=== PATIENT | female | born 1970 | race Caucasian/White ===

== ENCOUNTER 2018-08-01 13:15 | Outpatient (CLI) | payer BC ==
--- NOTE | 2018-08-01 13:58 | RAD ---
LUMBAR SPINE TWO VIEWS: HISTORY: M51.36, degenerative disk disease, lumbar. FINDINGS: Significant levoscoliosis of the lumbar vertebral column. Multilevel disk osteophytosis, as well as some facet arthrosis. Lumbarization of S1 with a left-sided pseudoarthrosis between the transverse p rocess and the left sacral ala. IMPRESSION: 1. Transitional vertebrae at the lumbosacral level, evidence for a partially lumbarized S1. 2. Significant levoscoliosis. 3. Disk osteophytosis and evidence for spondylosis. POS: C
--- NOTE | 2018-08-01 14:30 | MRI ---
MR the lumbar spine without contrast INDICATION: Low back pain with left-sided radiculopathy; left leg numbness COMPARISON: Lumbar spinal radiograph dated August 01, 2018 TECHNIQUE: Multiplanar multisequence MR images were obtained of lumbar spine without IV contrast. FINDINGS: There is prominent levoscoliosis of the lumbar spine centered at L3-4. There is a transitio nal lumbosacral vertebra with partial lumbarization of S1. Bone marrow: There is a moderate Modic endplate degenerative change at L4-5 and L2-3. Distal spinal cord and conus: Normal. The conus seen to terminate at L1. Visualized retroperitoneum and paraspinal soft tissues: Normal. Vertebral levels: S1-S2: There is mild facet joint degenerative change. There is no appreciable central canal or neural foraminal narrowing. L5-S1: There is an asymmetric to the left disc osteophyte complex in addition to facet hypertrophy an d loss of disc space height inducing severe left neural foraminal narrowing.. L4-5: There is a broad-based disc osteophyte complex with facet hypertrophy and ligamentum flavum hyp ertrophy inducing moderate central canal narrowing and moderate bilateral neural foraminal narrowing. L3-4: There is a broad-based disc osteophyte complex and facet hypertrophy inducing mild bilateral ne ural foraminal narrowing, right greater than left. There is mild central canal narrowing. L2-3: There is a broad-based disc osteophyte complex, asymmetric to the right. There is facet hypertr ophy. There is mild central canal narrowing. There is moderate right and mild left neural foraminal narrowing. L1-L2: There is a broad-based disc bulge but no appreciable central canal or neural foraminal narrowi ng. T12-L1: There is a mild broad-based disc bulge but no appreciable central canal or neural foraminal n arrowing IMPRESSION: 1. Severe left neural foraminal narrowing at L5-S1 due to broad-based disc osteophyte complex, facet hypertrophy and loss of disc space height. 2. Moderate central canal and moderate bilateral neural foraminal narrowing at L4-5. 3. Mild central canal mild neural foraminal narrowing at L3-4. 4. Moderate right and mild left neural foraminal narrowing at L2-3 with mild central canal narrowing.
== END 2018-08-01 13:16 | disposition home or self-care (01) ==
LOC: TBSIIMAG 13:15
PROVIDERS: ATTEND Neurological Surgery
DX: M51.36 Other intervertebral disc degeneration, lumbar region (principal); M47.816 Spondylosis without myelopathy or radiculopathy, lumbar region; M41.9 Scoliosis, unspecified; M25.78 Osteophyte, vertebrae; Q76.49 Other congenital malformations of spine, not associated with scoliosis; M48.061 Spinal stenosis, lumbar region without neurogenic claudication; M48.07 Spinal stenosis, lumbosacral region; M51.87 Other intervertebral disc disorders, lumbosacral region
CPT/HCPCS: 72100; 72148

== ENCOUNTER 2020-03-21 16:13 | Outpatient (CLI) | payer BC ==
--- NOTE | 2020-03-21 16:42 | MMO ---
Bilateral MAMMO Bilat Screen [facility]. CLINICAL HISTORY: Patient is 49 years old and is seen for screening. The patient has no family history of breast cancer. The patient has no personal history of cancer. VIEWS: The views performed were: bilateral craniocaudal; bilateral craniocaudal with tomosynthesis; bilateral mediolateral oblique; and bilateral mediolateral oblique with tomosynthesis. FILMS COMPARED: The present examination has been compared to a prior imaging study performed at [facility] on 06/10/2015. This study has been interpreted with the assistance of computer-aided detection. MAMMOGRAM FINDINGS: The breasts are heterogeneously dense, which could obscure a lesion on mammography. Benign calcifications are noted bilaterally. There are no suspicious masses, suspicious calcifications, or new areas of architectural distortion. IMPRESSION: THERE IS NO MAMMOGRAPHIC EVIDENCE OF MALIGNANCY. A ROUTINE FOLLOW-UP MAMMOGRAM IN 1 YEAR IS RECOMMENDED. THE RESULTS OF THIS EXAM WERE SENT TO THE PATIENT. ACR BI-RADS Category 2 - Benign finding MAMMOGRAPHY NOTE: 1. A negative mammogram report should not delay a biopsy if a dominant of clinically suspicious mass is present. 2. Approximately 10% to 15% of breast cancers are not detected by mammography. 3. Adenosis and dense breasts may obscure an underlying neoplasm. Reported by: ROMMEL DE ANDA MD Electonically Signed: [id number]
== END 2020-03-21 16:14 | disposition home or self-care (01) ==
LOC: BICMAMMO 16:13
PROVIDERS: ATTEND Family Medicine
DX: Z12.31 Encounter for screening mammogram for malignant neoplasm of breast (principal)
CPT/HCPCS: 77063; 77067

== ENCOUNTER 2021-08-18 09:30 | Outpatient (CLI) | payer BC | END 2021-08-18 09:31 | disposition home or self-care (01) | LOC: SCSRAD 09:30 | PROVIDERS: ATTEND Family Medicine | DX: M25.562 Pain in left knee (principal) ==

== ENCOUNTER 2022-05-16 07:44 | Outpatient (CLI) | payer BC | END 2022-05-16 07:45 | disposition home or self-care (01) | LOC: SCSMRI 07:44 | PROVIDERS: ATTEND Family Medicine | DX: S83.512D Sprain of anterior cruciate ligament of left knee, subsequent encounter (principal); M25.562 Pain in left knee; S83.282A Other tear of lateral meniscus, current injury, left knee, initial encounter; M17.12 Unilateral primary osteoarthritis, left knee; R60.0 Localized edema; R93.7 Abnormal findings on diagnostic imaging of other parts of musculoskeletal system ==

== ENCOUNTER 2023-02-27 14:48 | Outpatient (CLI) | payer BC | END 2023-02-27 14:49 | disposition home or self-care (01) | LOC: LABBT 14:48 | PROVIDERS: ATTEND Orthopaedic Surgery | DX: Z01.818 Encounter for other preprocedural examination (principal); M17.12 Unilateral primary osteoarthritis, left knee | CPT/HCPCS: 71046; 93005; 93010 ==

== ENCOUNTER 2023-03-04 06:03 | Inpatient (IN) | payer BC ==
[2023-02-27 15:29] VITALS: BMI 31.6
[2023-02-27 16:17] LABS: #Basophils 0.1 10x3/uL (0.0-0.2); #Eosinphils 0.1 10x3/uL (0.0-0.5); #Monocytes 0.6 10x3/uL (0.0-1.1); #Neutrophils 3.6 10x3/uL (1.5-8.4); %Basophils 1.1 % (0.0-2.0); %Eosinophils 1.9 % (0.0-6.0); %Lymphocytes 40.6 % (18.0-47.0); %Monocytes 8.4 % (0.0-10.0); %Neutrophils 47.7 % (40.0-75.0); Hemoglobin 14.8 g/dL (12.0-15.5); Mean Corpuscular HGB CONC 32.9 g/dL (32.0-36.0); Mean Corpuscular Hemoglobin 28.7 pg (27.0-33.0); Mean Corpuscular Volume 87.4 fl (81.6-98.3); Mean Platelet Volume 10.4 fl (7.4-10.4); Platelet Count 328 10x3/uL (150-450); RBC Distribution Width 13.1 % (11.5-14.5); Red Blood Cell (RBC) Count 5.15 10x6/uL (3.90-5.03); White Blood Cell (WBC) Count 7.4 10x3/uL (3.5-10.5)
[2023-02-27 16:25] LABS: Bilirubin Neg (Negative); Blood, Urine Negative (Negative); Clarity Clear (Clear); Glucose, Urine (Dipstick) Normal (Negative); Ketone, Urine Negative (Negative); Leukocyte Negative (Negative); Nitrite Negative (Negative); Protein, Urine (Dipstick) Negative (Neg-Trace); Urobilinogen Normal mg/dL (Less than 2)
[2023-02-27 16:26] LABS: Prothrombin Time 10.6 sec (9.5-12.1)
[2023-02-27 16:35] LABS: Anion Gap 17 mmol/L (10-20); BUN (Urea Nitrogen) 8 mg/dL (9.8-20.1); Calc. Creatinine Clearance 0 mL/min (70-130); Calcium 10.1 mg/dL (7.8-10.44); Carbon Dioxide 24 mmol/L (22-29); Chloride 103 mmol/L (98-107); Estimated GFR 88; Glucose 92 mg/dL (70-105); Potassium 4.1 mmol/L (3.5-5.1); Sodium 140 mmol/L (136-145)
[2023-03-04] MEDS ORDERED: Sodium Chloride 0.9% 100 ML ONE ×2 (06:12→07:09)
[2023-03-04] MEDS ORDERED: Tranexamic Acid 1,000 MG/10 ML VIAL ONE ×2 (06:12→09:42)
[2023-03-04] MEDS ORDERED: Vancomycin (BATCH) 1.5 GM/300 ML BAG ONE (06:12)
[2023-03-04] MEDS ORDERED: Bupivacaine 0.25% HCL 30 ML VIAL ONE (06:26)
[2023-03-04] MEDS ORDERED: Fentanyl 250 MCG/5 ML VIAL ONE (06:39)
[2023-03-04] MEDS ORDERED: Midazolam HCl 2 mg/2 ml Vial ONE (06:39)
[2023-03-04] MEDS ORDERED: CEFAZOLIN 2 GM VIAL ONE (07:09)
[2023-03-04] MEDS ORDERED: PROPOFOL 40 ML ONE (07:29)
[2023-03-04] MEDS ORDERED: fentaNYL 50 mcg/mL 1 mL Vial SLOW IVP PRN (07:29)
[2023-03-04] MEDS ORDERED: HYDROcodone/Acetaminophen 10/325 mg Tablet PO PRN (07:30)
[2023-03-04] MEDS ORDERED: Zolpidem Tartrate 5 MG TAB PO PRN ×2 (07:30→09:50)
[2023-03-04] MEDS ORDERED: Promethazine HCl 25 MG/ML VIAL IM PRN ×2 (07:30→09:50)
[2023-03-04] MEDS ORDERED: Ondansetron PF 4 MG/2 ML Vial IVP PRN ×2 (07:30→09:50)
[2023-03-04] MEDS ORDERED: traMADol HCl 50 MG TAB PO PRN ×2 (07:30)
[2023-03-04] MEDS ORDERED: Ropivacaine 0.2% 550 ML 550 ML NERVE BLCK SCH (07:30)
[2023-03-04] MEDS ORDERED: Dexamethasone 4 mg/ml Vial ONE (07:31)
[2023-03-04] MEDS ORDERED: Lidocaine 2% PF 5 ML VIAL ONE (07:31)
[2023-03-04] MEDS ORDERED: Ondansetron PF 4 MG/2 ML Vial ONE ×3 (07:31→07:45)
[2023-03-04] MEDS ORDERED: Ketorolac Tromethamine 30 MG/ML VIAL ONE ×2 (07:31→07:45)
[2023-03-04] MEDS ORDERED: Lidocaine 1% PF 5 ML VIAL ONE (07:45)
[2023-03-04] MEDS ORDERED: Dexamethasone 20 MG/5 ML VIAL ONE (07:45)
[2023-03-04] MEDS ORDERED: PROPOFOL 200 MG/20 ML VIAL ONE (07:45)
[2023-03-04] MEDS ORDERED: EPINEPHrine 1 MG/ML VIAL ONE (07:58)
[2023-03-04] MEDS ORDERED: Bupivacaine PF 0.5% 30 ML VIAL ONE (07:59)
[2023-03-04] MEDS ORDERED: Meperidine HCl/PF 25 MG/ML VIAL ONE (09:23)
[2023-03-04] MEDS ORDERED: fentaNYL PF 100 MCG/2 ML SYRINGE ONE ×3 (09:23→10:06)
[2023-03-04] MEDS ORDERED: HYDROmorphone 0.5 MG/0.5 ML SYRINGE ONE ×3 (09:42→10:19)
[2023-03-04] MEDS ORDERED: Acetaminophen 325 MG TAB PO PRN (09:50)
[2023-03-04] MEDS ORDERED: diphenhydrAMINE 25 MG CAP PO PRN (09:50)
[2023-03-04] MEDS ORDERED: Tranexamic Acid 1,000 MG in Sodium Chloride 0.9% 100 ML IVPB SCH (10:00)
[2023-03-04] MEDS ORDERED: Ketorolac Tromethamine 30 MG/ML VIAL IVP SCH (12:00)
[2023-03-04] MEDS: HYDROcodone/Acetaminophen 10/325 mg Tablet PO PRN ×3 (13:18→21:46)
[2023-03-04] MEDS: Sodium Chloride 0.9% 1,000 ML IV SCH ×2 (13:20→20:45)
[2023-03-04] MEDS: CEFAZOLIN 2 GM in Sodium Chloride 0.9% 100 ML IVPB SCH ×2 (15:25→23:35)
[2023-03-04] MEDS ORDERED: Vancomycin 1.5 GM in Sodium Chloride 0.9% 250 ML 300 ML IVPB SCH (18:00)
[2023-03-04] MEDS: Sertraline 25 MG TAB PO SCH (20:41)
[2023-03-04] MEDS: diphenhydrAMINE 25 MG CAP PO SCH (20:41)
[2023-03-04] MEDS: tiZANidine HCl 4 MG TAB PO SCH (20:41)
[2023-03-04] MEDS: Zolpidem Tartrate 5 MG TAB PO SCH (20:42)
[2023-03-04] MEDS: Nebivolol HCl 5 MG TAB PO SCH (20:43)
[2023-03-04] MEDS: Aspirin 81 mg Enteric Coated Tablet PO SCH (20:43)
[2023-03-04] MEDS: Senokot S 8.6-50 MG TAB PO SCH (20:44)
[2023-03-04] MEDS: Ferrous Gluconate 324 MG TAB PO SCH (20:44)
[2023-03-05] MEDS: HYDROcodone/Acetaminophen 10/325 mg Tablet PO PRN ×4 (03:22→20:50)
[2023-03-05] MEDS: Sodium Chloride 0.9% 1,000 ML IV SCH ×2 (07:17→11:33)
[2023-03-05 07:43] LABS: Hematocrit 33.9 % (36.0-47.0); Mean Corpuscular HGB CONC 32.4 g/dL (32.0-36.0); Mean Corpuscular Hemoglobin 29.4 pg (27.0-31.0); Mean Corpuscular Volume 90.6 fl (78.0-98.0); Mean Platelet Volume 11.4 fL (7.4-10.4); Platelet Count 212 10x3/uL (130-400); RBC Distribution Width 13.3 % (11.5-14.5); Red Blood Cell (RBC) Count 3.74 mill/uL (4.20-5.40); White Blood Cell (WBC) Count 8.4 10x3/uL (4.8-10.8)
[2023-03-05] MEDS: Aspirin 81 mg Enteric Coated Tablet PO SCH ×2 (08:26→20:45)
[2023-03-05] MEDS: Loratadine 10 MG TAB PO SCH (08:27)
[2023-03-05] MEDS: Senokot S 8.6-50 MG TAB PO SCH ×2 (08:27→20:45)
[2023-03-05] MEDS: Ferrous Gluconate 324 MG TAB PO SCH ×2 (08:27→20:45)
[2023-03-05] MEDS: Multivitamin W/ Minerals 1 TAB PO SCH (08:33)
[2023-03-05] MEDS: Nebivolol HCl 5 MG TAB PO SCH (20:45)
[2023-03-05] MEDS: diphenhydrAMINE 25 MG CAP PO SCH (20:45)
[2023-03-05] MEDS: Sertraline 25 MG TAB PO SCH (20:46)
[2023-03-05] MEDS: Zolpidem Tartrate 5 MG TAB PO SCH (20:46)
[2023-03-05] MEDS: tiZANidine HCl 4 MG TAB PO SCH (20:46)
[2023-03-06] MEDS: HYDROcodone/Acetaminophen 10/325 mg Tablet PO PRN ×3 (01:40→10:01)
[2023-03-06] MEDS: Sodium Chloride 0.9% 1,000 ML IV SCH (01:43)
[2023-03-06 06:04] LABS: Hematocrit 31.1 % (36.0-47.0); Hemoglobin 10.1 g/dL (12.0-16.0); Mean Corpuscular HGB CONC 32.5 g/dL (32.0-36.0); Mean Corpuscular Hemoglobin 29.8 pg (27.0-31.0); Mean Corpuscular Volume 91.7 fl (78.0-98.0); Platelet Count 184 10x3/uL (130-400); RBC Distribution Width 13.7 % (11.5-14.5); Red Blood Cell (RBC) Count 3.39 mill/uL (4.20-5.40); White Blood Cell (WBC) Count 9.2 10x3/uL (4.8-10.8)
[2023-03-06 08:15] VITALS: BP 93/54; TEMP 98
[2023-03-06] MEDS: Loratadine 10 MG TAB PO SCH (10:02)
[2023-03-06] MEDS: Aspirin 81 mg Enteric Coated Tablet PO SCH (10:02)
[2023-03-06] MEDS: Ferrous Gluconate 324 MG TAB PO SCH (10:02)
[2023-03-06] MEDS: Senokot S 8.6-50 MG TAB PO SCH (10:02)
[2023-03-06] MEDS: Multivitamin W/ Minerals 1 TAB PO SCH (10:04)
== END 2023-03-06 12:20 | disposition home or self-care (01) | DRG 470 ==
LOC: SDC 06:03 → SURG A 11:36 → OBSVTOIN 03-05 15:03
PROVIDERS: ADMIT Orthopaedic Surgery; ATTEND Orthopaedic Surgery
PROC: 0SRD0J9 Replacement of Left Knee Joint with Synthetic Substitute, Cemented, Open Approach (ICD-10-PCS; principal; 2023-03-04)
PROC: 3E033XZ Introduction of Vasopressor into Peripheral Vein, Percutaneous Approach (ICD-10-PCS; 2023-03-04)
DX: M17.12 Unilateral primary osteoarthritis, left knee (principal); E78.5 Hyperlipidemia, unspecified; I10 Essential (primary) hypertension; S83.282A Other tear of lateral meniscus, current injury, left knee, initial encounter; Z86.16 Personal history of COVID-19; Z98.890 Other specified postprocedural states; Z79.899 Other long term (current) drug therapy
CPT/HCPCS: 36415; 80048; 81003; 85025; 85027; 85610; 86850; 86900; 86901; 87081; A4306; C1713; C1776; J0171; J1100; J1170; J1885; J2001; J2175; J2250; J2405; J2704; J2795; J3010; J3370; J3490; J7050; S0020

== ENCOUNTER 2024-01-12 00:24 | Inpatient (IN) | payer BC ==
[2024-01-12 00:46] LABS: #Basophils 0.05 10x3/uL (0.0-0.2); %Basophils 0.7 % (0.0-1.0); %Eosinophils 1.4 % (0.0-10.0); %Lymphocytes 35.7 % (21.0-51.0); %Monocytes 6.3 % (0.0-10.0); %Neutrophils 55.6 % (42.0-75.0); Hematocrit 46.2 % (36.0-47.0); Hemoglobin 15.1 g/dL (12.0-16.0); Mean Corpuscular HGB CONC 32.7 g/dL (32.0-36.0); Mean Corpuscular Hemoglobin 28.9 pg (27.0-31.0); Mean Corpuscular Volume 88.5 fL (78.0-98.0); Mean Platelet Volume 9.9 fL (7.4-10.4); Platelet Count 238 10x3/uL (130-400); RBC Distribution Width 14.4 % (11.5-14.5); Red Blood Cell (RBC) Count 5.22 mill/uL (4.20-5.40)
[2024-01-12] MEDS ORDERED: Lidocaine Viscous Sol 2% 15 ml UD Cup ONE (00:59)
[2024-01-12] MEDS ORDERED: Mag-Al 1200 mg/1200 mg/30 ML UDCUP ONE (00:59)
[2024-01-12 01:08] LABS: ALT (SGPT) 413 U/L (8-55); AST (SGOT) 527 U/L (5-34); Albumin 4.3 g/dL (3.5-5.0); Alkaline Phosphatase 136 U/L (40-110); Anion Gap 18 mmol/L (10-20); BUN (Urea Nitrogen) 8 mg/dL (9.8-20.1); Bilirubin, Total 1.2 mg/dL (0.2-1.2); Calc. Creatinine Clearance 0 mL/min (70-130); Calcium 10.2 mg/dL (7.8-10.44); Carbon Dioxide 23 mmol/L (22-29); Chloride 105 mmol/L (98-107); Estimated GFR 82; Globulin 3.4 g/dL (2.4-3.5); Glucose 150 mg/dL (70-105); Lipase 79 U/L (8-78); Potassium 3.6 mmol/L (3.5-5.1); Protein, Total 7.7 g/dL (6.0-8.3); Sodium 142 mmol/L (136-145)
[2024-01-12] MEDS ORDERED: Ondansetron ODT 4 MG TAB ONE (01:17)
[2024-01-12] MEDS ORDERED: Morphine 4 MG/ML VIAL ONE (03:03)
[2024-01-12 03:05] LABS: Bacteria/HPF None Seen HPF (None Seen); Bilirubin Negative (Negative); Blood, Urine Negative (Negative); CAUTI Indications for Culture Pelvic or flank pain; Clarity Clear (Clear); Glucose, Urine (Dipstick) Normal (Negative); Ketone, Urine Negative (Negative); Leukocyte Negative Leu/uL (Negative); Nitrite Negative (Negative); Protein, Urine (Dipstick) Negative (Neg-Trace); RBC/HPF 0-3 HPF (0-3); Specific Gravity, Urine 1.004 (1.002-1.036); Squamous Epithelial 0-3 HPF (0-3); Urobilinogen Normal mg/dL (Less than 2); WBC/HPF 0-3 HPF (0-3); pH, Urine 7.5 (5.0-9.0)
[2024-01-12 03:15] LABS: Urine Culture Reflex No No
[2024-01-12] MEDS ORDERED: Ipratropium/Albuterol 3 ML NEB NEB PRN (04:20)
[2024-01-12] MEDS ORDERED: Glucagon 1 MG/ML KIT IM PRN (04:20)
[2024-01-12] MEDS ORDERED: Mag-Al 1200 mg/1200 mg/30 ML UDCUP PO PRN (04:20)
[2024-01-12] MEDS ORDERED: Dextrose 50% Abboject 50 ML SYRINGE SLOW IVP PRN (04:20)
[2024-01-12] MEDS ORDERED: Acetaminophen 325 MG TAB PO PRN (04:20)
[2024-01-12] MEDS ORDERED: Dextrose 5% in Water 1,000 ML IV PRN (04:20)
[2024-01-12] MEDS ORDERED: Piperacillin/Tazobactam 3.375 GM in Sodium Chloride 0.9% 100 ML IVPB SCH (04:30)
[2024-01-12 05:43] VITALS: BMI 36.1
[2024-01-12] MEDS: Lactated Ringer's 1,000 ML IV SCH (05:57)
[2024-01-12] MEDS: hydrALAZINE 20 MG/ML VIAL SLOW IVP PRN (05:58)
[2024-01-12] MEDS: Piperacillin/Tazobactam 3.375 GM in Sodium Chloride 0.9% 100 ML IVPB SCH ×2 (05:58→10:58)
[2024-01-12] MEDS ORDERED: Lorazepam 2 MG/ML VIAL SLOW IVP PRN (08:01)
[2024-01-12] MEDS: Ketorolac Tromethamine 30 MG (1 mL) VIAL IVP PRN (09:56)
[2024-01-12] MEDS: Diazepam 10 MG/2 ML SYRINGE IVP PRN (09:56)
[2024-01-12] MEDS: Famotidine 20 MG TAB PO SCH (10:57)
[2024-01-12] MEDS: HYDROcodone/Acetaminophen 7.5/325 mg Tablet PO PRN (11:08)
[2024-01-12] MEDS: Senokot 8.6 MG TAB PO SCH (21:28)
[2024-01-12] MEDS: Loratadine 10 MG TAB PO SCH (21:28)
[2024-01-12] MEDS: Sertraline 100 MG TAB PO SCH (21:29)
[2024-01-12] MEDS: Floranex 1 GM Packet PO SCH (21:30)
[2024-01-13] MEDS: Ondansetron PF 4 MG/2 ML Vial IVP PRN (05:54)
[2024-01-13 06:17] LABS: #Basophils 0.07 10x3/uL (0.0-0.2); %Basophils 1.1 % (0.0-1.0); %Eosinophils 6.8 % (0.0-10.0); %Lymphocytes 32.8 % (21.0-51.0); %Monocytes 7.4 % (0.0-10.0); %Neutrophils 51.7 % (42.0-75.0); Hematocrit 45.7 % (36.0-47.0); Hemoglobin 14.3 g/dL (12.0-16.0); Mean Corpuscular HGB CONC 31.3 g/dL (32.0-36.0); Mean Corpuscular Hemoglobin 28.9 pg (27.0-31.0); Mean Corpuscular Volume 92.5 fL (78.0-98.0); Mean Platelet Volume 10.8 fL (7.4-10.4); Platelet Count 187 10x3/uL (130-400); RBC Distribution Width 15.3 % (11.5-14.5); Red Blood Cell (RBC) Count 4.94 mill/uL (4.20-5.40)
[2024-01-13 07:28] LABS: ALT (SGPT) 391 U/L (8-55); AST (SGOT) 171 U/L (5-34); Albumin 3.8 g/dL (3.5-5.0); Alkaline Phosphatase 125 U/L (40-110); Anion Gap 12 mmol/L (10-20); BUN (Urea Nitrogen) 6 mg/dL (9.8-20.1); Bilirubin, Total 0.8 mg/dL (0.2-1.2); Calc. Creatinine Clearance 143 mL/min (70-130); Calcium 9.1 mg/dL (7.8-10.44); Carbon Dioxide 23 mmol/L (22-29); Chloride 109 mmol/L (98-107); Estimated GFR 92; Globulin 2.8 g/dL (2.4-3.5); Glucose 89 mg/dL (70-105); Lipase 26 U/L (8-78); Potassium 3.4 mmol/L (3.5-5.1); Protein, Total 6.6 g/dL (6.0-8.3); Sodium 141 mmol/L (136-145)
[2024-01-13] MEDS ORDERED: Electrolyte Replacement Protocol FS PRN (08:15)
[2024-01-13] MEDS ORDERED: Sertraline 100 MG TAB PO SCH (09:00)
[2024-01-13] MEDS: Potassium Chloride 20 MEQ TAB PO SCH (09:16)
[2024-01-13] MEDS: Indocyanine Green 25 MG/10 ML VIAL IVP SCH (14:25)
[2024-01-13] MEDS ORDERED: Dexamethasone 4 mg/ml Vial ONE (14:42)
[2024-01-13] MEDS ORDERED: Rocuronium Bromide 10 MG/ML (10ML VIAL) ONE (14:42)
[2024-01-13] MEDS ORDERED: fentaNYL PF 100 MCG/2 ML SYRINGE ONE (14:42)
[2024-01-13] MEDS ORDERED: Ondansetron PF 4 MG/2 ML Vial ONE (14:42)
[2024-01-13] MEDS ORDERED: Lidocaine 1% PF 5 ML VIAL ONE (14:42)
[2024-01-13] MEDS ORDERED: SUGAMMADEX SODIUM 200 MG/2 ML VIAL ONE (14:43)
[2024-01-13] MEDS ORDERED: PROPOFOL 40 ML ONE (14:43)
[2024-01-13] MEDS ORDERED: EPINEPHrine 1 MG/ML VIAL ONE (14:47)
[2024-01-13] MEDS ORDERED: Lidocaine 2% PF 5 ML VIAL ONE (15:41)
[2024-01-13] MEDS ORDERED: Glycopyrrolate 0.2 MG/ML 5 ML SYRINGE ONE (15:41)
[2024-01-13] MEDS ORDERED: ePHEDrine Sulfate 50 MG/10 ML VIAL ONE (15:49)
[2024-01-13] MEDS ORDERED: hydrALAZINE 20 MG/ML VIAL ONE (16:05)
[2024-01-13] MEDS ORDERED: Ketorolac Tromethamine 30 MG (1 mL) VIAL ONE (16:15)
[2024-01-13] MEDS ORDERED: fentaNYL 50 mcg/mL 1 mL Vial ONE ×2 (16:19→16:47)
[2024-01-13] MEDS ORDERED: Dextrose 5% in Water 1,000 ML IV PRN (16:36)
[2024-01-13] MEDS ORDERED: Dextrose 50% Abboject 50 ML SYRINGE SLOW IVP PRN (16:36)
[2024-01-13] MEDS ORDERED: HYDROcodone/Acetaminophen 10/325 mg Tablet PO PRN (16:36)
[2024-01-13] MEDS ORDERED: Ondansetron PF 4 MG/2 ML Vial IVP PRN (16:36)
[2024-01-13] MEDS ORDERED: Glucagon 1 MG/ML KIT IM PRN (16:36)
[2024-01-13] MEDS ORDERED: HYDROmorphone 0.5 MG/0.5 ML SYRINGE ONE (17:21)
[2024-01-13] MEDS: D5 1/2 NS w/20 mEq KCL 1,000 ML IV SCH (18:15)
[2024-01-13] MEDS ORDERED: Enoxaparin 40 MG (0.4 mL) SYRINGE SC SCH (21:00)
[2024-01-13] MEDS: Morphine 4 MG/ML VIAL SLOW IVP PRN (22:51)
[2024-01-14] MEDS: Famotidine 20 MG TAB PO SCH (00:29)
[2024-01-14] MEDS: Enoxaparin 40 MG (0.4 mL) SYRINGE SC SCH (09:51)
[2024-01-14 12:22] VITALS: BP 131/84; TEMP 97.3
== END 2024-01-14 13:09 | disposition home or self-care (01) | DRG 419 ==
LOC: ERS 00:24 → SURG A 04:29
PROVIDERS: ADMIT Surgery; ATTEND Surgery
PROC: 0FT44ZZ Resection of Gallbladder, Percutaneous Endoscopic Approach (ICD-10-PCS; principal; 2024-01-13)
PROC: 8E0W4CZ Robotic Assisted Procedure of Trunk Region, Percutaneous Endoscopic Approach (ICD-10-PCS; 2024-01-13)
PROC: BF131ZZ Fluoroscopy of Gallbladder and Bile Ducts using Low Osmolar Contrast (ICD-10-PCS; 2024-01-13)
DX: K80.10 Calculus of gallbladder with chronic cholecystitis without obstruction (principal); K21.9 Gastro-esophageal reflux disease without esophagitis; E78.5 Hyperlipidemia, unspecified; I10 Essential (primary) hypertension; F32.A Depression, unspecified; F41.9 Anxiety disorder, unspecified; Z96.652 Presence of left artificial knee joint; R51.9 Headache, unspecified; Z88.8 Allergy status to other drugs, medicaments and biological substances; Z91.040 Latex allergy status; Z91.048 Other nonmedicinal substance allergy status; Z91.018 Allergy to other foods; Z79.899 Other long term (current) drug therapy; Z79.82 Long term (current) use of aspirin
CPT/HCPCS: 36415; 74181; 76376; 76705; 80053; 81001; 83690; 85025; 88304; 93005; 96374; C1889; J0171; J0360; J1100; J1170; J1650; J1885; J2272; J2405; J2543; J2704; J3010; J3360; J3480; J7120; Q0162

== ENCOUNTER 2024-12-14 22:20 | Emergency (ER) | payer BC ==
[2024-12-15] MEDS ORDERED: Famotidine/PF 20 mg/2ml Vial ONE (02:03)
== END 2024-12-15 03:10 | disposition home or self-care (01) ==
LOC: ERS 22:20
DX: T78.40XA Allergy, unspecified, initial encounter (principal)
CPT/HCPCS: 96374; 96375; J2919